=== PATIENT | female | born 1965 | race Caucasian/White ===

== ENCOUNTER 2018-06-06 07:24 | Emergency (ER) | payer BC ==
[2018-06-06 08:07] LABS: #Eosinphils 0.1 thou/uL (0.0-0.7); #Lymphocytes 1.3 thou/uL (1.20-3.40); #Monocytes 0.4 thou/uL (0.11-0.59); #Neutrophils 1.9 thou/uL (1.40-6.50); %Basophils 0.1 % (0.0-1.0); %Eosinophils 2.9 % (0.0-10.0); %Lymphocytes 34.7 % (21.0-51.0); %Monocytes 9.5 % (0.0-10.0); %Neutrophils 52.8 % (42.0-75.0); Hemoglobin 13.8 g/dL (12.0-16.0); Mean Corpuscular HGB CONC 33.1 g/dL (32.0-36.0); Mean Corpuscular Hemoglobin 27.8 pg (27.0-31.0); Mean Corpuscular Volume 84.1 fL (78.0-98.0); Mean Platelet Volume 6.6 fL (7.4-10.4); Platelet Count 172 thou/uL (130-400); RBC Distribution Width 13.4 % (11.5-14.5); Red Blood Cell (RBC) Count 4.97 mill/uL (4.20-5.40); White Blood Cell (WBC) Count 3.7 thou/uL (4.8-10.8)
[2018-06-06] MEDS ORDERED: Morphine 4 MG/ML VIAL ONE (08:08)
[2018-06-06 08:28] LABS: ALT (SGPT) 34 U/L (8-55); AST (SGOT) 24 U/L (5-34); Alkaline Phosphatase 71 U/L (40-150); Anion Gap 13 mmol/L (10-20); BUN (Urea Nitrogen) 12 mg/dL (9.8-20.1); Bilirubin, Total 1.1 mg/dL (0.2-1.2); Calc. Creatinine Clearance 0 mL/min (70-130); Calcium 9.5 mg/dL (7.8-10.44); Carbon Dioxide 25 mmol/L (22-29); Chloride 105 mmol/L (98-107); Estimated GFR-MDRD 76; Globulin 2.7 g/dL (2.4-3.5); Glucose 91 mg/dL (70-105); Lipase 16 U/L (8-78); Potassium 4.4 mmol/L (3.5-5.1); Protein, Total 6.7 g/dL (6.0-8.3); Sodium 139 mmol/L (136-145)
--- NOTE | 2018-06-06 08:44 | RAD ---
PORTABLE CHEST: Date: 06/06/18 PROVIDED CLINICAL HISTORY: Chest pain. FINDINGS: Examination is limited by patient body habitus. The lungs are hypoinflated. Cardiac silhouette appear s prominent, which may be at least partially on the basis of portable technique. No focal consolidati on, pleural fluid, or pneumothorax apparent. IMPRESSION: Hypoinflated exam. POS: [facility]
--- NOTE | 2018-06-06 11:52 | ULT ---
RIGHT UPPER QUADRANT ULTRASOUND: Date: 06/06/18 PROVIDED CLINICAL HISTORY: Back pain. FINDINGS: Visualized IVC appears normal. Pancreas obscured. Liver demonstrates no evidence for mass or intrahep atic biliary ductal dilatation. Common duct is not dilated. Gallbladder demonstrates no evidence for stones, wall thickening, or pericholecystic fluid. Right kidney demonstrates no evidence for hydronep hrosis or mass. IMPRESSION: No evidence for an acute process. POS: [facility]
== END 2018-06-06 12:55 | disposition home or self-care (01) ==
LOC: ERS 07:24
DX: R07.89 Other chest pain (principal); I10 Essential (primary) hypertension; E03.9 Hypothyroidism, unspecified; G47.30 Sleep apnea, unspecified; Z86.718 Personal history of other venous thrombosis and embolism; F90.9 Attention-deficit hyperactivity disorder, unspecified type; Z79.899 Other long term (current) drug therapy
CPT/HCPCS: 36415; 71045; 76705; 80053; 83690; 84484; 85025; 93005; 96374; J2270